=== PATIENT | male | born 1955 | race Caucasian/White ===

== ENCOUNTER 2019-08-23 11:04 | Emergency (ER) | payer BC, OTHER ==
[~2019-08-23] VITALS: Ht 175.3 cm; Wt 133.8 kg
[2019-08-23 11:04] VITALS: BP 145/93
[2019-08-23] MEDS ORDERED: METFORMIN HCL500 M3 PO (11:18)
[2019-08-23] MEDS ORDERED: ASA81BEC PO (11:20)
[2019-08-23] MEDS ORDERED: KEFLEX500 M1 PO (11:32)
== END 2019-08-23 11:57 | disposition home or self-care (01) ==
LOC: ER 11:04
DX: L03.012 Cellulitis of left finger (principal); E11.9 Type 2 diabetes mellitus without complications; I10 Essential (primary) hypertension; Z79.82 Long term (current) use of aspirin; Z88.0 Allergy status to penicillin